=== PATIENT | male | born 2000 | race African-American/Black ===

== ENCOUNTER 2022-12-12 09:54 | Emergency (ER) | payer OTHER ==
[~2022-12-12] VITALS: Ht 172.7 cm; Wt 75.0 kg
[2022-12-12 09:59] VITALS: TEMP 98.2
[2022-12-12 11:36] LABS: BASOPHILS % (AUTO) 0.7 % (0.0-2.0); HEMATOCRIT 49.5 % (41-53); LYMPHOCYTES # (AUTO) 1.2 K/uL (1.0-4.8); LYMPHOCYTES % (AUTO) 11.3 % (22.0-44.0); MEAN CORPUSCULAR HEMOGLOBIN 28.9 pg (26.0-34.0); MEAN CORPUSCULAR HGB CONC 34.3 G/dL (31.0-37.0); MEAN CORPUSCULAR VOLUME 84 fL (80-100); MONOCYTES # (AUTO) 0.8 K/uL (0.1-1.0); MONOCYTES % (AUTO) 7.5 % (2.0-9.0); NEUTROPHILS # (AUTO) 8.5 K/uL (1.8-7.7); NEUTROPHILS % (AUTO) 79.5 % (40.0-70.0); PLATELET COUNT (AUTO) 389 K/uL (150-450); RED BLOOD CELL COUNT(AUTO) 5.89 MIL/uL (4.50-5.90); RED CELL DISTRIBUTION WIDTH 12.8 % (11.5-14.5)
[2022-12-12 11:50] LABS: ANION GAP 10 mmol/L (8-16); CALCIUM, TOTAL 9.5 mg/dL (8.8-10.5); CARBON DIOXIDE 27 mmol/L (22-29); CHLORIDE 94 mmol/L (98-107); CREATININE 1.69 mg/dL (0.60-1.30); GLOMERULAR FILTR. RATE CALC > 60 mL/min (>60); GLUCOSE,RANDOM 78 mg/dL (70-110); POTASSIUM 3.6 mmol/L (3.5-5.1); SODIUM SERUM 131 mmol/L (136-145)
[2022-12-12 11:55] LABS: ALANINE AMINOTRANSFERASE 58 U/L (12-78); ALBUMIN 4.6 g/dL (3.4-5.0); ALKALINE PHOSPHATASE 108 U/L (46-116); ASPARTATE AMINOTRANSFERASE 94 U/L (15-37); TOTAL PROTEIN, SERUM 8.2 g/dL (6.4-8.2)
[2022-12-12 13:26] VITALS: BP 134/83; PULSE 64; RESP 16
== END 2022-12-12 13:19 | disposition home or self-care (01) ==
LOC: EMS 09:54
DX: F19.10 Other psychoactive substance abuse, uncomplicated (principal); F15.10 Other stimulant abuse, uncomplicated; F41.9 Anxiety disorder, unspecified; F17.210 Nicotine dependence, cigarettes, uncomplicated; Z91.011 Allergy to milk products
CPT/HCPCS: 71045; 80053; 85025; 99284; 36415-L1; 36415-TC

== ENCOUNTER 2023-07-03 06:50 | Emergency (ER) | payer OTHER ==
[~2023-07-03] VITALS: Ht 172.7 cm; Wt 68.2 kg
[2023-07-03] MEDS: LORazepam 2 MG TABLET PO ONE (07:02)
[2023-07-03] MEDS: HALOPERIDOL 5 MG TABLET PO ONE (07:02)
[2023-07-03] MEDS: DiphenhydrAMINE HCL 25 MG CAPSULE PO ONE (07:02)
[2023-07-03 07:54] VITALS: TEMP 97.6
[2023-07-03 15:50] VITALS: BP 111/72; PULSE 68; RESP 16
== END 2023-07-03 16:30 | disposition home or self-care (01) ==
LOC: EMS 06:51
DX: F15.90 Other stimulant use, unspecified, uncomplicated (principal); F41.9 Anxiety disorder, unspecified; F17.210 Nicotine dependence, cigarettes, uncomplicated; Z91.011 Allergy to milk products
CPT/HCPCS: 99284; Z7502; Z7610

== ENCOUNTER 2023-07-05 02:10 | Emergency (ER) | payer OTHER ==
[~2023-07-05] VITALS: Ht 172.7 cm; Wt 67.0 kg
[2023-07-05 02:15] VITALS: TEMP 98
[2023-07-05] MEDS ORDERED: PERM60CR19 TP (03:13)
[2023-07-05] MEDS: LORazepam 2 MG TABLET PO ONE ×2 (03:42→06:04)
[2023-07-05 03:43] VITALS: BP 134/84; PULSE 89; RESP 16
== END 2023-07-05 04:27 | disposition home or self-care (01) ==
LOC: EMS 02:10
DX: F15.90 Other stimulant use, unspecified, uncomplicated (principal); F41.9 Anxiety disorder, unspecified; B86 Scabies; F17.210 Nicotine dependence, cigarettes, uncomplicated; Z91.011 Allergy to milk products
CPT/HCPCS: 99283

== ENCOUNTER 2023-08-16 00:01 | Emergency (ER) | payer OTHER ==
[~2023-08-16] VITALS: Ht 167.6 cm; Wt 60.0 kg
[~2023-08-16 00:01] MED LIST: PERM60CR19 TP
[2023-08-16 00:13] VITALS: BP 137/69; PULSE 96; TEMP 98.4
[2023-08-16 06:45] VITALS: RESP 16
== END 2023-08-16 06:46 | disposition home or self-care (01) ==
LOC: EMS 00:05
DX: F15.90 Other stimulant use, unspecified, uncomplicated (principal); F17.210 Nicotine dependence, cigarettes, uncomplicated; F41.9 Anxiety disorder, unspecified; Z91.011 Allergy to milk products
CPT/HCPCS: 99281; Z7502

== ENCOUNTER 2023-08-26 15:28 | Emergency (ER) | payer OTHER ==
[~2023-08-26] VITALS: Ht 175.3 cm; Wt 72.7 kg
[2023-08-26 15:47] VITALS: BP 144/97; PULSE 120; RESP 22; TEMP 97.5
[2023-08-26 16:05] LABS: APPEARANCE,URINE TURBID (CLEAR); BILIRUBIN,URINE NEGATIVE (NEGATIVE); COLOR,URINE YELLOW (YELLOW); GLUCOSE, URINE (UA) NEGATIVE (NEGATIVE); KETONES,URINE NEGATIVE (NEGATIVE); LEUKOCYTE ESTERASE ,URINE LARGE (NEGATIVE); NITRATE,URINE NEGATIVE (NEGATIVE); OCCULT BLOOD,URINE LARGE (NEGATIVE); PH,URINE 6.5 (5.0-8.0); PROTEIN,URINE 300-600,SEE CONFIRM mg/dL (NEGATIVE); SPECIFIC GRAVITIY, URINE 1.031 (1.003-1.030); UROBILINOGEN,URINE <=1.0 mg/dL (<=1.0)
[2023-08-26 16:09] LABS: BACTERIA,URINE Moderate /HPF (None Seen); RBC,URINE 51-100 /HPF (0-2); SQUAMOUS EPITHELIAL CELL,UR Few /LPF (None Seen); SULFOSALICYLIC ACID,URINE 4+ (Negative); WBC,URINE >100 /HPF (0-5)
[2023-08-26] MEDS: CEPHALEXIN MONOHYDRATE 500 MG CAPSULE PO ONE (17:49)
[2023-08-26] MEDS: LEVOFLOXACIN 500 MG TABLET PO ONE (17:49)
[2023-08-26] MEDS: IBUPROFEN 600 MG TABLET PO ONE (17:50)
[2023-08-26] MEDS ORDERED: CEPH-558 PO (18:40)
[2023-08-26] MEDS ORDERED: IBUP-1554 PO (18:43)
== END 2023-08-26 18:45 | disposition left against medical advice (07) ==
LOC: EMS 15:28
DX: N39.0 Urinary tract infection, site not specified (principal); N45.1 Epididymitis; F15.90 Other stimulant use, unspecified, uncomplicated; F41.9 Anxiety disorder, unspecified; F17.210 Nicotine dependence, cigarettes, uncomplicated; Z91.011 Allergy to milk products
CPT/HCPCS: 81001; 81002; 87086; 87186; 99284; Z7502; Z7610

== ENCOUNTER 2024-02-02 02:42 | Emergency (ER) | payer OTHER ==
[~2024-02-02] VITALS: Ht 175.3 cm; Wt 68.2 kg
[~2024-02-02 02:42] MED LIST changes: +CEPH-558 PO; +IBUP-1554 PO; -PERM60CR19 TP
[2024-02-02 03:04] VITALS: BP 119/73; PULSE 104; RESP 16; TEMP 98.9; O2SAT 100
[2024-02-02] MEDS: BACITRACIN 28 GM OINTMENT TP ONE (03:18)
== END 2024-02-02 03:31 | disposition home or self-care (01) ==
LOC: EMS 02:42
DX: S30.810A Abrasion of lower back and pelvis, initial encounter (principal); F17.210 Nicotine dependence, cigarettes, uncomplicated; F19.10 Other psychoactive substance abuse, uncomplicated; Z91.011 Allergy to milk products; X58.XXXA Exposure to other specified factors, initial encounter; Y93.89 Activity, other specified; Y92.89 Other specified places as the place of occurrence of the external cause; Y99.8 Other external cause status
CPT/HCPCS: 99282; Z7502; Z7610

== ENCOUNTER 2024-02-08 06:04 | Emergency (ER) | payer OTHER | END 2024-02-08 06:29 | disposition left against medical advice (07) | LOC: EMS 06:04 | DX: Z53.21 Procedure and treatment not carried out due to patient leaving prior to being seen by health care provider (principal) ==